=== PATIENT | female | born 1950 | race African-American/Black ===

== ENCOUNTER 2017-06-19 23:19 | Inpatient (IN) ==
[2017-06-20 02:07] LABS: Apearance,Urine CLOUDY (Clear); Bacteria,Urine Moderate /HPF (Few); Bilirubin,Urine Negative (Negative); Blood, Urine Small mg/dL (Negative); Glucose,Urine (UA) Negative (Negative); Ketones,Urine 5 mg/dL (Negative); Nitrite,Urine Negative (Negative); Protein,Urine 100 MG/DL; Urine Color Amber (Yellow); Urine Specific Gravity 1.011 (1.001-1.035); WBC,Urine 3058 /HPF (0-6)
[2017-06-20] MEDS ORDERED: AMPICILLIN/SULBACTAM 3,000 MG in SODIUM CHLORIDE 0.9% 100 ML IV STA (03:33)
[2017-06-20] MEDS ORDERED: AMPICILLIN/SULBACTAM 3,000 MG VIAL ONE (04:00)
[2017-06-20] MEDS ORDERED: SODIUM CHLORIDE 0.9% 100 ML IV ONE (04:01)
[2017-06-20 05:27] LABS: Basophils % 0.2 % (0.0-0.8); Hematocrit 35.9 VOL% (35.7-47.0); Hemoglobin 10.9 GM/DL (12.0-16.0); Immature Granulocytes % 0.7 %; Lymphocytes % 6.8 % (21.3-54.2); Mean Corpuscular HGB Conc 30.4 GM/DL (32-36); Mean Corpuscular Hemoglobin 26 PG (27-34); Mean Corpuscular Volume 83.9 FL (87-102); Mean Platelet Volume 11.2 FL (9.6-12.0); Monocytes # 1.1 10*3/uL (0.11-0.8); Monocytes % 7.5 % (1.7-12.7); Neutrophils # 12.7 10*3/uL (1.4-7.4); Neutrophils % 84.8 % (38.7-73.9); Platelet Count 213 T/CUMM (130-400); Red Blood Count 4.28 MC/CUMM (3.8-5.5); Red Cell Distribution Width 14.5 % (9.3-17.3)
[2017-06-20 06:19] LABS: Albumin 3.3 G/DL (3.4-5.0); Bilirubin,Total 1.1 MG/DL (0.2-1.0); Calcium 8.9 MG/DL (8.5-10.1); Osmolality,Calculated 273.4 MOS/KG (273-304); Potassium 3.7 MMOL/L (3.5-5.1); Total Protein 8.2 G/DL (6.4-8.3)
[2017-06-20 06:32] LABS: Band Neutrophils 3 % (0-10); Lymphocytes 12 % (20-55); Segmented Neutrophils 81 % (50-85)
[2017-06-20 06:33] LABS: Platelet Estimate Normal; Total Cells Counted 100
[2017-06-20] MEDS ORDERED: DOCUSATE SODIUM 100 MG CAPSULE PO PRN (08:32)
[2017-06-20] MEDS ORDERED: GLUCAGON 1 MG VIAL IM PRN (08:32)
[2017-06-20] MEDS ORDERED: MORPHINE 2 MG/1 ML SYRINGE IV PRN (08:32)
[2017-06-20] MEDS ORDERED: LACTULOSE 20 GM/30 ML UDCUP PO PRN (08:32)
[2017-06-20] MEDS ORDERED: DEXTROSE 50% 25 GM/50 ML VIAL IV PRN (08:32)
[2017-06-20] MEDS: SODIUM CHLORIDE 0.9% 1,000 ML IV SCH ×2 (09:33→17:19)
[2017-06-20] MEDS: PANTOPRAZOLE 40 MG TABLET PO SCH (09:34)
[2017-06-20] MEDS: PIPERACILLIN/TAZOBACTAM 3,375 MG in SODIUM CHLORIDE 0.9% 100 ML IV SCH ×2 (11:07→17:42)
[2017-06-20] MEDS: INSULIN LISPRO 100 UNIT/ML SUBCUT SCH ×3 (12:04→22:02)
[2017-06-20] MEDS: ACETAMINOPHEN 325 MG TABLET PO PRN ×2 (12:04→16:30)
[2017-06-20] MEDS ORDERED: NON-FORMULARY MEDICATION (Omeprazole [Omeprazole] 20 MG) PO SCH (17:00)
[2017-06-20] MEDS: ASPIRIN CHEW 81 MG TABLET PO SCH (17:36)
[2017-06-20] MEDS: amLODIPine 5 MG TABLET PO SCH (17:36)
[2017-06-20 18:50] LABS: Apearance,Urine CLOUDY (Clear); Bacteria,Urine Moderate /HPF (Few); Bilirubin,Urine Negative (Negative); Blood, Urine Small mg/dL (Negative); Glucose,Urine (UA) 50 mg/dL (Negative); Ketones,Urine 5 mg/dL (Negative); Nitrite,Urine Negative (Negative); Protein,Urine 100 MG/DL; Urine Color Amber (Yellow); Urine Specific Gravity 1.012 (1.001-1.035); WBC,Urine 3636 /HPF (0-6)
[2017-06-20] MEDS: METOPROLOL SUCCINATE XL 100 MG TABLET PO SCH (22:03)
[2017-06-20] MEDS: TACROLIMUS 0.5 MG CAPSULE PO SCH (22:03)
[2017-06-20] MEDS: MYCOPHENOLATE MOFETIL 250 MG CAPSULE PO SCH (22:03)
[2017-06-21] MEDS: PIPERACILLIN/TAZOBACTAM 3,375 MG in SODIUM CHLORIDE 0.9% 100 ML IV SCH ×3 (02:14→17:34)
[2017-06-21] MEDS: SODIUM CHLORIDE 0.9% 1,000 ML IV SCH ×3 (02:14→17:03)
[2017-06-21] MEDS ORDERED: ONDANSETRON 4 MG/2 ML VIAL IV PRN (06:26)
[2017-06-21 07:09] LABS: Basophils % 0.3 % (0.0-0.8); Eosinophils % 0.1 % (0.00-10.9); Hemoglobin 8.6 GM/DL (12.0-16.0); Immature Granulocytes % 0.9 %; Lymphocytes # 0.8 10*3/uL (1.4-4.0); Lymphocytes % 7.5 % (21.3-54.2); Mean Corpuscular HGB Conc 30.7 GM/DL (32-36); Mean Corpuscular Hemoglobin 26 PG (27-34); Mean Corpuscular Volume 83.1 FL (87-102); Mean Platelet Volume 11.8 FL (9.6-12.0); Monocytes # 1.6 10*3/uL (0.11-0.8); Monocytes % 15.3 % (1.7-12.7); Neutrophils # 8.1 10*3/uL (1.4-7.4); Neutrophils % 75.9 % (38.7-73.9); Platelet Count 208 T/CUMM (130-400); Red Blood Count 3.37 MC/CUMM (3.8-5.5); Red Cell Distribution Width 14.5 % (9.3-17.3); White Blood Count 10.7 T/CUMM (4-12)
[2017-06-21 07:33] LABS: Calcium 7.9 MG/DL (8.5-10.1); Osmolality,Calculated 269.2 MOS/KG (273-304); Potassium 3.4 MMOL/L (3.5-5.1)
[2017-06-21 07:58] LABS: Hypochromasia 2+; Microcytosis 2+; Target Cells Slight
[2017-06-21] MEDS: INSULIN LISPRO 100 UNIT/ML SUBCUT SCH ×4 (08:21→22:17)
[2017-06-21 08:44] LABS: Albumin 2.3 G/DL (3.4-5.0); Calcium 7.6 MG/DL (8.5-10.1); Osmolality,Calculated 271.1 MOS/KG (273-304); Potassium 3.4 MMOL/L (3.5-5.1)
[2017-06-21] MEDS: PANTOPRAZOLE 40 MG TABLET PO SCH (09:42)
[2017-06-21] MEDS: predniSONE 5 MG TABLET PO SCH (09:42)
[2017-06-21] MEDS: METOPROLOL SUCCINATE XL 100 MG TABLET PO SCH ×2 (09:42→22:19)
[2017-06-21] MEDS: TACROLIMUS 0.5 MG CAPSULE PO SCH ×2 (09:42→22:17)
[2017-06-21] MEDS: MYCOPHENOLATE MOFETIL 250 MG CAPSULE PO SCH ×2 (09:42→22:19)
[2017-06-21] MEDS: LEVOTHYROXINE 100 MCG TABLET PO SCH (09:43)
[2017-06-21] MEDS: INSULIN GLARGINE 100 UNIT/ML SUBCUT SCH (09:43)
[2017-06-21] MEDS: amLODIPine 5 MG TABLET PO SCH (09:43)
[2017-06-21] MEDS: ASPIRIN CHEW 81 MG TABLET PO SCH (09:43)
[2017-06-22] MEDS: PIPERACILLIN/TAZOBACTAM 3,375 MG in SODIUM CHLORIDE 0.9% 100 ML IV SCH ×2 (02:11→11:34)
[2017-06-22] MEDS: SODIUM CHLORIDE 0.9% 1,000 ML IV SCH ×3 (02:25→20:58)
[2017-06-22] MEDS: LEVOTHYROXINE 100 MCG TABLET PO SCH (06:25)
[2017-06-22 06:44] LABS: Basophils % 0.2 % (0.0-0.8); Eosinophils # 0.1 10*3/uL (0.0-0.87); Eosinophils % 1.3 % (0.00-10.9); Hematocrit 29.2 VOL% (35.7-47.0); Hemoglobin 8.9 GM/DL (12.0-16.0); Immature Granulocytes Absolute 0.08 #; Lymphocytes % 11.6 % (21.3-54.2); Mean Corpuscular HGB Conc 30.5 GM/DL (32-36); Mean Corpuscular Hemoglobin 25 PG (27-34); Mean Corpuscular Volume 83.2 FL (87-102); Mean Platelet Volume 11.5 FL (9.6-12.0); Monocytes % 11.7 % (1.7-12.7); Neutrophils # 6.1 10*3/uL (1.4-7.4); Neutrophils % 74.2 % (38.7-73.9); Platelet Count 248 T/CUMM (130-400); Red Blood Count 3.51 MC/CUMM (3.8-5.5); Red Cell Distribution Width 14.5 % (9.3-17.3); White Blood Count 8.2 T/CUMM (4-12)
[2017-06-22 07:05] LABS: Giant Platelets Few; Hypochromasia 1+; Lymphocytes 6 % (20-55); Microcytosis 1+; Ovalocytes Slight; Platelet Estimate Adequate; Segmented Neutrophils 83 % (50-85); Total Cells Counted 100
[2017-06-22 07:07] LABS: Albumin 2.3 G/DL (3.4-5.0); Calcium 8.4 MG/DL (8.5-10.1); Osmolality,Calculated 274.8 MOS/KG (273-304); Potassium 3.4 MMOL/L (3.5-5.1)
[2017-06-22] MEDS: INSULIN LISPRO 100 UNIT/ML SUBCUT SCH ×4 (07:53→20:59)
[2017-06-22] MEDS: INSULIN GLARGINE 100 UNIT/ML SUBCUT SCH (09:50)
[2017-06-22] MEDS: ASPIRIN CHEW 81 MG TABLET PO SCH (09:52)
[2017-06-22] MEDS: predniSONE 5 MG TABLET PO SCH (09:52)
[2017-06-22] MEDS: amLODIPine 5 MG TABLET PO SCH (09:53)
[2017-06-22] MEDS: PANTOPRAZOLE 40 MG TABLET PO SCH (09:54)
[2017-06-22] MEDS: METOPROLOL SUCCINATE XL 100 MG TABLET PO SCH ×2 (09:54→21:00)
[2017-06-22] MEDS: MYCOPHENOLATE MOFETIL 250 MG CAPSULE PO SCH ×2 (09:55→21:00)
[2017-06-22] MEDS: TACROLIMUS 0.5 MG CAPSULE PO SCH ×2 (09:55→21:00)
[2017-06-22] MEDS: diphenhydrAMINE 50 MG/1 ML VIAL IV SCH (15:54)
[2017-06-22] MEDS: cefTRIAXone 1,000 MG in SYRINGE 1 EACH IV SCH (16:44)
[2017-06-23 06:49] LABS: Basophils % 0.2 % (0.0-0.8); Eosinophils # 0.2 10*3/uL (0.0-0.87); Hematocrit 31.2 VOL% (35.7-47.0); Hemoglobin 9.5 GM/DL (12.0-16.0); Immature Granulocytes % 1.1 %; Immature Granulocytes Absolute 0.09 #; Lymphocytes % 12.2 % (21.3-54.2); Mean Corpuscular HGB Conc 30.4 GM/DL (32-36); Mean Corpuscular Hemoglobin 25 PG (27-34); Mean Corpuscular Volume 82.8 FL (87-102); Mean Platelet Volume 11.4 FL (9.6-12.0); Monocytes # 0.8 10*3/uL (0.11-0.8); Monocytes % 10.4 % (1.7-12.7); Neutrophils % 74.1 % (38.7-73.9); Platelet Count 296 T/CUMM (130-400); Red Blood Count 3.77 MC/CUMM (3.8-5.5); Red Cell Distribution Width 14.4 % (9.3-17.3); White Blood Count 8.1 T/CUMM (4-12)
[2017-06-23] MEDS: SODIUM CHLORIDE 0.9% 1,000 ML IV SCH ×2 (06:51→06:53)
[2017-06-23] MEDS: LEVOTHYROXINE 100 MCG TABLET PO SCH (06:52)
[2017-06-23 07:08] LABS: Albumin 2.5 G/DL (3.4-5.0); Calcium 8.5 MG/DL (8.5-10.1); Osmolality,Calculated 273.5 MOS/KG (273-304); Potassium 3.2 MMOL/L (3.5-5.1)
[2017-06-23] MEDS: INSULIN GLARGINE 100 UNIT/ML SUBCUT SCH (09:16)
[2017-06-23] MEDS: INSULIN LISPRO 100 UNIT/ML SUBCUT SCH ×2 (09:16→13:17)
[2017-06-23] MEDS: predniSONE 5 MG TABLET PO SCH (09:17)
[2017-06-23] MEDS: METOPROLOL SUCCINATE XL 100 MG TABLET PO SCH (09:18)
[2017-06-23] MEDS: ASPIRIN CHEW 81 MG TABLET PO SCH (09:18)
[2017-06-23] MEDS: PANTOPRAZOLE 40 MG TABLET PO SCH (09:18)
[2017-06-23] MEDS: amLODIPine 5 MG TABLET PO SCH (09:19)
[2017-06-23] MEDS: TACROLIMUS 0.5 MG CAPSULE PO SCH (09:20)
[2017-06-23] MEDS: MYCOPHENOLATE MOFETIL 250 MG CAPSULE PO SCH (09:23)
[2017-06-23] MEDS ORDERED: POTASSIUM CHLORIDE 20 MEQ TABLET PO ONE (12:50)
[2017-06-23] MEDS ORDERED: MORPHINE 10 MG/1 ML VIAL IV PRN (14:30)
[2017-06-23] MEDS: diphenhydrAMINE 50 MG/1 ML VIAL IV SCH (15:21)
[2017-06-23] MEDS: cefTRIAXone 1,000 MG in SYRINGE 1 EACH IV SCH (15:59)
[2017-06-23 17:24] VITALS: BP 153/84
== END 2017-06-23 17:45 | disposition home health service (06) | DRG 872 ==
LOC: N.EDINP 23:19 → N.ED 23:19 → OBSVTOIN 06-20 06:56 → SUATTDRO 06-20 06:56 → N.EDINP 06-20 08:08 → N.5E 06-20 08:46
PROVIDERS: ADMIT Internal Medicine Infectious Disease; ATTEND Internal Medicine Cardiovascular Disease

== ENCOUNTER 2020-02-27 13:44 | Inpatient (IN) ==
[2020-02-27] MEDS ORDERED: ACETAMINOPHEN 500 MG TABLET PO ONE (16:52)
[2020-02-27] MEDS ORDERED: GLUCAGON 1 MG VIAL IM PRN (17:01)
[2020-02-27] MEDS ORDERED: DEXTROSE 50% 25 GM/50 ML VIAL IV PRN ×2 (17:01→17:06)
[2020-02-27] MEDS ORDERED: hydrALAZINE 20 MG/1 ML VIAL IV PRN (17:06)
[2020-02-27] MEDS ORDERED: ONDANSETRON 4 MG/2 ML VIAL IV PRN (17:06)
[2020-02-27] MEDS ORDERED: LACTULOSE 20 GM/30 ML UDCUP PO PRN (17:11)
[2020-02-27] MEDS: MEROPENEM 500 MG in SODIUM CHLORIDE 0.9% 100 ML IV SCH ×2 (17:29→23:08)
[2020-02-27 18:09] LABS: Basophils % 0.2 % (0.0-0.8); Eosinophils % 0.2 % (0.00-10.9); Hematocrit 40.9 VOL% (35.7-47.0); Hemoglobin 12.7 GM/DL (12.0-16.0); Immature Granulocytes % 0.6 %; Immature Granulocytes Absolute 0.09 #; Lymphocytes # 1.3 10*3/uL (1.4-4.0); Lymphocytes % 8.9 % (21.3-54.2); Mean Corpuscular HGB Conc 31.1 GM/DL (32-36); Mean Corpuscular Volume 87.6 FL (87-102); Mean Platelet Volume 12.4 FL (9.6-12.0); Monocytes % 11.6 % (1.7-12.7); Neutrophils % 78.5 % (38.7-73.9); Platelet Count 79 T/CUMM (130-400); Red Blood Count 4.67 MC/CUMM (3.8-5.5); Red Cell Distribution Width 13.7 % (9.3-17.3); White Blood Count 14.9 T/CUMM (4-12)
[2020-02-27 18:51] LABS: Albumin 3.5 G/DL (3.4-5.0); Bilirubin,Total 0.4 MG/DL (0.2-1.0); Calcium 9.4 MG/DL (8.5-10.1); Osmolality,Calculated 268.1 MOS/KG (273-304); Total Protein 8.1 G/DL (6.4-8.3)
[2020-02-27 21:32] LABS: Platelet Estimate Decreased
[2020-02-27] MEDS: TACROLIMUS 0.5 MG CAPSULE PO SCH (21:36)
[2020-02-27] MEDS: MYCOPHENOLATE MOFETIL 250 MG CAPSULE PO SCH (21:36)
[2020-02-27] MEDS: ENOXAPARIN 40 MG/0.4 ML SYRINGE SUBCUT SCH (21:37)
[2020-02-27] MEDS: INSULIN REGULAR 100 UNIT/ML SUBCUT SCH (21:37)
[2020-02-27] MEDS: METOPROLOL SUCCINATE XL 100 MG TABLET PO SCH (21:37)
[2020-02-28 01:14] LABS: Bacteria,Urine Occasional /HPF (Few); Bilirubin,Urine Negative (Negative); Blood, Urine Negative (Negative); Glucose,Urine (UA) Negative (Negative); Ketones,Urine Negative (Negative); Nitrite,Urine Negative (Negative); Protein,Urine Negative; RBC,Urine 1 /HPF (0-4); Renal Epithelial Cells,Urine Occasional /HPF (<1); Squamous Epithelial Cell,Urine Occasional /HPF (0-10); Urine Appearance CLEAR (Clear); Urine Color Yellow (Yellow); Urine Specific Gravity 1.009 (1.001-1.035); Urine Urobilinogen < 2.0 EU/DL (0.2-1.0); WBC,Urine 46 /HPF (0-6)
[2020-02-28 05:19] LABS: Basophils % 0.2 % (0.0-0.8); Eosinophils % 0.1 % (0.00-10.9); Hematocrit 40.1 VOL% (35.7-47.0); Hemoglobin 12.5 GM/DL (12.0-16.0); Immature Granulocytes % 0.5 %; Immature Granulocytes Absolute 0.08 #; Lymphocytes # 1.4 10*3/uL (1.4-4.0); Lymphocytes % 8.6 % (21.3-54.2); Mean Corpuscular HGB Conc 31.2 GM/DL (32-36); Mean Corpuscular Volume 87.9 FL (87-102); Mean Platelet Volume 12.6 FL (9.6-12.0); Monocytes % 10.8 % (1.7-12.7); Neutrophils % 79.8 % (38.7-73.9); Platelet Count 80 T/CUMM (130-400); Red Blood Count 4.56 MC/CUMM (3.8-5.5); Red Cell Distribution Width 13.8 % (9.3-17.3); White Blood Count 15.7 T/CUMM (4-12)
[2020-02-28 05:47] LABS: Calcium 9.3 MG/DL (8.5-10.1); Thyroid Stimulating Hormone 0.729 uIU/ml (0.358-3.74)
[2020-02-28 05:48] LABS: Band Neutrophils 2 % (0-10); Hypochromasia 1+; Lymphocytes 11 % (20-55); Segmented Neutrophils 77 % (50-85); Total Cells Counted 100
[2020-02-28] MEDS: LEVOTHYROXINE 100 MCG TABLET PO SCH (05:59)
[2020-02-28] MEDS: MEROPENEM 500 MG in SODIUM CHLORIDE 0.9% 100 ML IV SCH ×4 (05:59→22:30)
[2020-02-28] MEDS: CYANOCOBALAMIN 500 MCG TABLET PO SCH (08:46)
[2020-02-28] MEDS: TACROLIMUS 0.5 MG CAPSULE PO SCH ×2 (08:46→20:30)
[2020-02-28] MEDS: PANTOPRAZOLE 40 MG TABLET PO SCH (08:47)
[2020-02-28] MEDS: predniSONE 5 MG TABLET PO SCH (08:47)
[2020-02-28] MEDS: MYCOPHENOLATE MOFETIL 250 MG CAPSULE PO SCH ×2 (08:47→20:30)
[2020-02-28] MEDS: METOPROLOL SUCCINATE XL 100 MG TABLET PO SCH ×2 (08:47→20:30)
[2020-02-28] MEDS: ASPIRIN CHEW 81 MG TABLET PO SCH (08:47)
[2020-02-28] MEDS: ATORVASTATIN 10 MG TABLET PO SCH (08:47)
[2020-02-28] MEDS: INSULIN REGULAR 100 UNIT/ML SUBCUT SCH ×4 (09:04→20:30)
[2020-02-28] MEDS: amLODIPine 10 MG TABLET PO SCH (13:49)
[2020-02-28] MEDS: CHOLECALCIFEROL 1,000 UNIT TABLET PO SCH (13:49)
[2020-02-28] MEDS: ENOXAPARIN 40 MG/0.4 ML SYRINGE SUBCUT SCH (20:30)
[2020-02-29] MEDS: MEROPENEM 500 MG in SODIUM CHLORIDE 0.9% 100 ML IV SCH ×5 (05:15→22:36)
[2020-02-29] MEDS: LEVOTHYROXINE 100 MCG TABLET PO SCH (05:35)
[2020-02-29] MEDS: ACETAMINOPHEN 325 MG TABLET PO PRN (05:35)
[2020-02-29 05:41] LABS: Basophils % 0.2 % (0.0-0.8); Eosinophils # 0.1 10*3/uL (0.0-0.87); Eosinophils % 0.6 % (0.00-10.9); Hematocrit 39.8 VOL% (35.7-47.0); Hemoglobin 12.4 GM/DL (12.0-16.0); Immature Granulocytes % 0.5 %; Immature Granulocytes Absolute 0.07 #; Lymphocytes # 1.2 10*3/uL (1.4-4.0); Lymphocytes % 8.1 % (21.3-54.2); Mean Corpuscular HGB Conc 31.2 GM/DL (32-36); Monocytes % 10.4 % (1.7-12.7); Neutrophils % 80.2 % (38.7-73.9); Platelet Count 53 T/CUMM (130-400); Red Blood Count 4.47 MC/CUMM (3.8-5.5); Red Cell Distribution Width 13.4 % (9.3-17.3)
[2020-02-29 06:09] LABS: Calcium 9.5 MG/DL (8.5-10.1)
[2020-02-29 06:19] LABS: Platelet Estimate Decreased
[2020-02-29] MEDS: INSULIN REGULAR 100 UNIT/ML SUBCUT SCH ×4 (08:31→20:58)
[2020-02-29] MEDS: METOPROLOL SUCCINATE XL 100 MG TABLET PO SCH ×2 (08:33→21:00)
[2020-02-29] MEDS: TACROLIMUS 0.5 MG CAPSULE PO SCH ×2 (08:33→21:00)
[2020-02-29] MEDS: CYANOCOBALAMIN 500 MCG TABLET PO SCH (08:33)
[2020-02-29] MEDS: ASPIRIN CHEW 81 MG TABLET PO SCH (08:33)
[2020-02-29] MEDS: MYCOPHENOLATE MOFETIL 250 MG CAPSULE PO SCH ×2 (08:33→20:59)
[2020-02-29] MEDS: ATORVASTATIN 10 MG TABLET PO SCH (08:35)
[2020-02-29] MEDS: SODIUM CHLORIDE 0.9% 1,000 ML IV SCH ×3 (08:35→16:37)
[2020-02-29] MEDS: predniSONE 5 MG TABLET PO SCH (08:38)
[2020-02-29] MEDS: PANTOPRAZOLE 40 MG TABLET PO SCH (08:38)
[2020-02-29] MEDS: amLODIPine 10 MG TABLET PO SCH (11:51)
[2020-02-29] MEDS: CHOLECALCIFEROL 1,000 UNIT TABLET PO SCH (11:52)
[2020-02-29] MEDS: ENOXAPARIN 40 MG/0.4 ML SYRINGE SUBCUT SCH (20:59)
[2020-02-29] MEDS: ASCORBIC ACID 500 MG TABLET PO SCH (20:59)
[2020-02-29] MEDS: METHENAMINE HIPPURATE 1 GM TABLET PO SCH (21:00)
[2020-03-01] MEDS: MEROPENEM 500 MG in SODIUM CHLORIDE 0.9% 100 ML IV SCH ×2 (04:33→11:07)
[2020-03-01] MEDS: ACETAMINOPHEN 325 MG TABLET PO PRN (04:52)
[2020-03-01 05:44] LABS: Basophils % 0.3 % (0.0-0.8); Calcium 8.9 MG/DL (8.5-10.1); Eosinophils # 0.2 10*3/uL (0.0-0.87); Eosinophils % 1.4 % (0.00-10.9); Hematocrit 36.7 VOL% (35.7-47.0); Hemoglobin 11.5 GM/DL (12.0-16.0); Immature Granulocytes % 0.6 %; Immature Granulocytes Absolute 0.07 #; Lymphocytes # 1.8 10*3/uL (1.4-4.0); Lymphocytes % 16.2 % (21.3-54.2); Mean Corpuscular HGB Conc 31.3 GM/DL (32-36); Mean Platelet Volume 11.5 FL (9.6-12.0); Monocytes % 11.2 % (1.7-12.7); Neutrophils % 70.3 % (38.7-73.9); Osmolality,Calculated 276.7 MOS/KG (273-304); Platelet Count 50 T/CUMM (130-400); Red Blood Count 4.08 MC/CUMM (3.8-5.5); Red Cell Distribution Width 13.3 % (9.3-17.3); White Blood Count 11.2 T/CUMM (4-12)
[2020-03-01] MEDS: SODIUM CHLORIDE 0.9% 1,000 ML IV SCH (06:02)
[2020-03-01] MEDS: LEVOTHYROXINE 100 MCG TABLET PO SCH (06:33)
[2020-03-01 08:12] VITALS: BP 133/68
[2020-03-01] MEDS: INSULIN REGULAR 100 UNIT/ML SUBCUT SCH (08:27)
[2020-03-01] MEDS ORDERED: NITROPRUSSIDE 50 MG/2 ML VIAL ONE (08:30)
[2020-03-01] MEDS ORDERED: CALCIUM CHLORIDE 1,000 MG/10 ML SYRINGE IV ONE (08:30)
[2020-03-01] MEDS: MYCOPHENOLATE MOFETIL 250 MG CAPSULE PO SCH (08:30)
[2020-03-01] MEDS ORDERED: PHENYLEPHRINE DRIP 40 MG/250 ML PREMIX IV ONE (08:30)
[2020-03-01] MEDS ORDERED: POTASSIUM CHLORIDE RIDER 100 ML IV ONE (08:30)
[2020-03-01] MEDS: PANTOPRAZOLE 40 MG TABLET PO SCH (08:30)
[2020-03-01] MEDS: METOPROLOL SUCCINATE XL 100 MG TABLET PO SCH (08:30)
[2020-03-01] MEDS ORDERED: SODIUM BICARBONATE 50 MEQ/50 ML VIAL IV ONE (08:30)
[2020-03-01] MEDS: predniSONE 5 MG TABLET PO SCH (08:31)
[2020-03-01] MEDS: ASPIRIN CHEW 81 MG TABLET PO SCH (08:31)
[2020-03-01] MEDS: CYANOCOBALAMIN 500 MCG TABLET PO SCH (08:31)
[2020-03-01] MEDS: ATORVASTATIN 10 MG TABLET PO SCH ×2 (08:31→08:34)
[2020-03-01] MEDS: TACROLIMUS 0.5 MG CAPSULE PO SCH (08:31)
[2020-03-01] MEDS ORDERED: EPINEPHrine 1 MG/10 ML SYRINGE ONE (08:31)
[2020-03-01] MEDS: ASCORBIC ACID 500 MG TABLET PO SCH (08:31)
[2020-03-01] MEDS: METHENAMINE HIPPURATE 1 GM TABLET PO SCH (08:31)
[2020-03-01] MEDS: CHOLECALCIFEROL 1,000 UNIT TABLET PO SCH (11:07)
[2020-03-01] MEDS: amLODIPine 10 MG TABLET PO SCH (11:07)
== END 2020-03-01 14:12 | disposition home health service (06) | DRG 872 ==
LOC: N.TELES → OBSVTOIN 15:51 → SUATTDRO 15:51
PROVIDERS: ADMIT Internal Medicine; ATTEND Hospitalist